=== PATIENT | male | born 1995 | race Caucasian/White ===

== ENCOUNTER 2018-05-05 18:15 | Emergency (ER) | payer OTHER ==
--- NOTE | 2018-05-05 19:32 | EDM.PDOC ---
ED HPI GENERAL MEDICAL PROBLEM - General Chief Complaint: Lower Extremity Injury/Pain Stated Complaint: [id number] SPRAINED ANKLE AT TRAINING Time Seen by Provider: 05/05/18 19:27 Source of Information: Reports: Patient History Limitations: Reports: No Limitations - History of Present Illness INITIAL COMMENTS - FREE TEXT/NARRATIVE: injured ~ 2pm today while running, been using ice for the swelling Treatments HUB BANDER: Reports: Cold Therapy, Other (see below) Other Treatments HUB BANDER: compression Review of Systems - Review of Systems Review Of Systems: ROS reveals no pertinent complaints other than HPI. ED EXAM, GENERAL - Physical Exam Exam: See Below Exam Limited By: No Limitations General Appearance: Alert, WD/WN, Mild Distress, Other (ankle pain) Ears: Hearing Grossly Normal Throat/Mouth: Normal Voice, No Airway Compromise Head: Atraumatic Neck: Non-Tender, Full Range of Motion Respiratory/Chest: No Respiratory Distress Cardiovascular: Regular Rate, Rhythm GI/Abdominal: Soft, Non-Tender Extremities: Other (left ankle mild swelling no gross D/D, tender R/P, NV wnl, gait limited to pain) Neurological: Oriented, Normal Cognition, No Motor/Sensory Deficits Psychiatric: Normal Affect, Normal Mood Skin Exam: Warm, Dry, Normal Color Lymphatic: No Adenopathy Course - Orders/Labs/Meds Orders: Active Orders 24 hr Category Date Time Status Ankle Min 3V Lt [CR] Urgent Exams 05/05/18 18:31 Taken - Re-Assessments/Exams Free Text/Narrative Re-Assessment/Exam: 05/05/18 19:29 results discussed with pt. Departure - Departure Time of Disposition: 19:29 Disposition: Home, Self-Care 01 Condition: Good Clinical Impression: Ankle sprain Qualifiers: Encounter type: initial encounter Involved ligament of ankle: unspecified ligament Laterality: left Qualified Code(s): S93.402A - Sprain of unspecified ligament of left ankle, initial encounter - Discharge Information Instructions: Ankle Sprain, [id number] Additional Instructions: 1) elevate leg as much as possible next 24 hours 2) ice intermittently for swelling 3) wear BRUCE for comfort and use crutches next 3 to 4 days 4) take tylenol or motrin for pain 5) see clinic for possible MRI SCAN if not significantly better by Sunday
== END 2018-05-05 19:56 | disposition home or self-care (01) ==
LOC: DL.ED 18:15
DX: S93.402A Sprain of unspecified ligament of left ankle, initial encounter (principal); X58.XXXA Exposure to other specified factors, initial encounter; Y93.02 Activity, running
CPT/HCPCS: 73610-LT; 96372; 99283